=== PATIENT | female | born 1960 | race Caucasian/White ===

== ENCOUNTER → 2019-09-27 | Outpatient (CLI) | payer BC ==
--- NOTE | 2019-09-27 18:14 | ECHOF ---
Referral Reason:Z95.4 Presence of other heart-valve replacement MEASUREMENTS -------- HEIGHT: 162.6 cm WEIGHT: 73.5 kg BP: 146/71 RVIDd: 2.4 cm (< 3.3) IVSd: 1.0 cm (0.6 - 1.1) LVIDd: 4.2 cm (3.9 - 5.3) LVPWd: 1.0 cm (0.6 - 1.1) EDV(Teich): 77 ml IVSs: 1.6 cm LVIDs: 2.7 cm LVPWs: 1.5 cm %IVS Thck: 50 % ESV(Teich): 28 ml EF(Teich): 64 % %FS: 34 % SV(Teich): 49 ml LA Diam: 3.4 cm (2.7 - 3.8) IVC: 1.9 cm LALs A4C: 4.2 cm LAAs A4C: 13.1 cm LAESV A-L A4C: 35 ml LAESV MOD A4C: 33 ml LALs A2C: 5.2 cm LAAs A2C: 14.9 cm LAESV A-L A2C: 36 ml LAESV MOD A2C: 34 ml LAESV(A-L): 40 ml LAESV Index (A-L): 22.22 ml/m Ao Diam: 3.1 cm (2.0 - 3.7) MV EXCURSION: 14.382 mm (> 18.000) MV EF SLOPE: 92 mm/s (70 - 150) EPSS: 0.7 cm MV E Mike: 1.08 m/s MV DecT: 182 ms MV Dec [place]: 5.9 m/s MV A Mike: 1.06 m/s MV E/A Ratio: 1.02 MV PHT: 53 ms LVOT Vmax: 0.65 m/s LVOT maxP.70 mmHg AV Vmax: 2.00 m/s AV maxP.98 mmHg AV Vmax: 1.99 m/s AV Vmean: 1.41 m/s AV maxP.79 mmHg AV meanP.65 mmHg AV Env.Ti: 300 ms AV VTI: 42.3 cm TR Vmax: 2.60 m/s TR maxP.02 mmHg RAP: 5.00 mmHg RVSP: 32.02 mmHg FINDINGS -------- Paced rhythm. This was a technically good study. The left ventricular size is normal. Left ventricular wall thickness is normal. Overall left vent ricular systolic function is normal with, an EF between 65 - 70 %. The right ventricle is normal in size. The left atrial size is normal. The right atrium is normal in size. Interatrial and interventricular septum intact. Peak/mean gradient across the Aortic Valve is 15.79mmHg / 8.65mmHg. Normally functioning bioprosthe tic valve. There is trace to mild mitral regurgitation. Mild tricuspid regurgitation present. Right ventricular systolic pressure is normal at < 35 mmHg. Trace/mild (physiologic) pulmonic regurgitation. The aortic root size is normal. Normal inferior vena cava with normal inspiratory collapse consistent with estimated right atrial pre ssure of 5 mmHg. There is no pericardial effusion. CONCLUSIONS -------- 1. The left ventricular size is normal. 2. Left ventricular wall thickness is normal. 3. Overall left ventricular systolic function is normal with, an EF between 65 - 70 %. 4. Peak/mean gradient across the Aortic Valve is 15.79mmHg / 8.65mmHg. 5. Normally functioning bioprosthetic valve. 6. There is trace to mild mitral regurgitation. 7. Mild tricuspid regurgitation present. 8. Trace/mild (physiologic) pulmonic regurgitation. 9. There is no pericardial effusion. [employer] SPECIALIST: Neisha Hernandez RDCS
== END | disposition home or self-care (01) ==
LOC: RADECHMAIN 16:13
PROVIDERS: ATTEND Family Medicine
DX: I08.1 Rheumatic disorders of both mitral and tricuspid valves (principal); Z95.4 Presence of other heart-valve replacement
CPT/HCPCS: 93306